=== PATIENT | female | born 2000 | race Caucasian/White ===

== ENCOUNTER 2018-06-12 10:11 | Day surgery (SDC) | payer OTHER ==
[~2018-06-12] VITALS: Ht 179.1 cm; Wt 72.4 kg
[2018-06-12] MEDS ORDERED: LACTATED RINGERS 1,000 ML IV SCH (11:22)
[2018-06-12] MEDS ORDERED: NONE PER PT (11:23)
[2018-06-12 11:26] VITALS: BP 115/81
[2018-06-12] MEDS ORDERED: LIDOCAINE-MPF 1%, 2ML INFIL ONE (11:30)
[2018-06-12 11:45] LABS: HCG UR SG 1.013 (1.003-1.030)
[2018-06-12] MEDS ORDERED: SCOPOLAMINE PATCH, 1.5MG PATCH.TD72 TD ONE ×2 (12:00→12:05)
[2018-06-12] MEDS ORDERED: ACETAMINOPHEN 500 MG TABLET PO ONE (12:00)
[2018-06-12] MEDS ORDERED: ONDANSETRON ODT 8 MG PO ONE (12:00)
[2018-06-12] MEDS ORDERED: MIDAZOLAM 1 MG/ML, 2ML ONE (12:02)
[2018-06-12] MEDS ORDERED: FENTANYL PF 250 MCG/5ML ONE (12:02)
[2018-06-12] MEDS ORDERED: ONDANSETRON ODT 8 MG ONE (12:04)
[2018-06-12] MEDS ORDERED: ONDANSETRON 2MG/ML, 2ML ONE (12:08)
[2018-06-12] MEDS ORDERED: LIDOCAINE GEL 2%, 5ML ONE (12:08)
[2018-06-12] MEDS ORDERED: DEXAMETHASONE 4 MG/ML, 1ML ONE (12:08)
[2018-06-12] MEDS ORDERED: SUCCINYLCHOLINE 20 MG/ML, 10ML ONE (12:12)
[2018-06-12] MEDS ORDERED: ROCURONIUM 10 MG/ML,10ML ONE (12:12)
[2018-06-12] MEDS ORDERED: PROPOFOL 10 MG/ML, 20ML ONE (12:12)
[2018-06-12] MEDS ORDERED: ONDANSETRON 2MG/ML, 2ML IV PRN (12:30)
[2018-06-12] MEDS ORDERED: MEPERIDINE/PF 25MG/0.5ML IVPush PRN (12:30)
[2018-06-12] MEDS ORDERED: LABETALOL 5MG/ML, 20ML IV PRN (12:30)
[2018-06-12] MEDS ORDERED: MIDAZOLAM 1 MG/ML, 2ML IV PRN (12:30)
[2018-06-12] MEDS ORDERED: HYDROmorphone 1 MG/ML, 1ML IV PRN (12:30)
[2018-06-12] MEDS ORDERED: ALBUTEROL SULFATE 2.5 MG/3 ML NPPB PRN (12:30)
[2018-06-12] MEDS ORDERED: ONDANSETRON ODT 8 MG PO PRN (12:30)
[2018-06-12] MEDS ORDERED: OXYcodone 5 MG/5 ML ORAL.SOL UDC PO PRN (12:30)
[2018-06-12] MEDS ORDERED: hydrALAzine 20 MG/ML, 1ML IV PRN (12:30)
[2018-06-12] MEDS ORDERED: PROMETHAZINE 25 MG/ML, 1ML IV PRN (12:30)
[2018-06-12] MEDS ORDERED: PROMETHAZINE 12.5 MG SUPP PR PRN (12:30)
[2018-06-12] MEDS ORDERED: OXYcodone 5 MG/5 ML ORAL.SOL UDC ONE (13:27)
[2018-06-12] MEDS ORDERED: FENTANYL PF 100 MCG/2ML ONE (13:27)
[2018-06-12] MEDS: FENTANYL PF 100 MCG/2ML IV PRN ×2 (13:28→13:33)
== END 2018-06-12 15:20 | disposition home or self-care (01) ==
LOC: OUT 10:11
PROVIDERS: ATTEND Otolaryngology
DX: J03.90 Acute tonsillitis, unspecified (principal)
CPT/HCPCS: 42826; 81025; 88300; J0330; J1100; J2250; J2405; J2704; J3010; J7120; Q0162